=== PATIENT | female | born 1965 | race Caucasian/White ===

== ENCOUNTER → 2024-06-18 | Outpatient (CLI) | payer MEDICARE, OTHER ==
--- NOTE | 2024-06-21 08:00 | CT ---
EXAMINATION TYPE: CT chest wo con DATE OF EXAM: 06/18/2024 COMPARISON: None HISTORY: LUNG NODULE CT DLP: 225.4 mGycm, Automated exposure control for dose reduction was used. CONTRAST: None TECHNIQUE: Axial images were obtained at 5 mm thick sections. Reconstructed images are reviewed on [employer] computer in the coronal plane. FINDINGS: Portion of the thyroid visualized is normal. There is a 0.4 cm nodule peripheral right upper lung field. Series 4 image 16f No enlarged mediastinal or hilar adenopathy is evident. The ascending aorta diameter at the level o f the main pulmonary artery is 4.4 cm. The main pulmonary artery diameter at the bifurcation is 2.3 cm. Aortic valve surgery is evident. Limited CT sections are obtained through the upper abdomen. Abdomen is essentially unremarkable. Fixation corky is present within the thoracic spine. Sternotomy wires are present. IMPRESSION: 1. A 0.4 centimeter peripheral right upper lobe nodule. A follow-up CT in one year can be performed. [facility], , 06/21/2024 7:58 AM
== END | disposition home or self-care (01) ==
LOC: RADCTMAIN 07:35
PROVIDERS: ATTEND Internal Medicine Pulmonary Disease
DX: R91.1 Solitary pulmonary nodule
CPT/HCPCS: 71250